=== PATIENT | male | born 1940 | race African-American/Black ===

== ENCOUNTER 2016-02-26 11:13 | Emergency (ER) | payer OTHER ==
[~2016-02-26] VITALS: Ht 188 cm; Wt 45.4 kg
--- NOTE | ~2016-02-26 | EKG ---
[address] [address] ELECTROCARDIOGRAM REPORT Name: BENJAMINJESSY [facility] [id number] Admission: 02/26/16 Attend Phys: Discharge: 02/26/16 Date of : 36 Report #: [id number] THIS REPORT FOR: //name// [facility] ED Test Date: 2016-02-26 Test Time: 11:23:18 Pat Name: JESSY ALEXANDER Department: Room: Gender: Labor Relations Director: ANDREI : 1940 Requested By: Levy Jeter Order Number: [id number] MD: Sebastien Hansen Measurements Intervals [place] Rate: 96 P: 150 AK: 122 QRS: -77 QRSD: 121 T: 127 QT: 356 QTc: 450 Interpretive Statements Sinus or ectopic atrial tachycardia Interpretation limited by artifact. Electronically Signed On 02-26-2016 16:30:43 BUSINESS ANALYTICS MANAGER by Sebastien Hansen [email or web address] <ELECTRONICALLY SIGNED> By: Seabstien Hansen MD 02/26/16 1630 1123 1123 Sebastien Hansen MD /MACIE
[~2016-02-26 11:13] MED LIST: ADVAIR 250-501 EACH IH; ATIVAN0.5 MG PO; BACTROBAN22 GM TP; BROVANA15 MCG/2 M IH; CARAFATE 1 GM TA1 G1 GT; CARDURA XL8 MG PO; DALIRESP500 MCG PO; FLOMAX PO; LOMOTIL TABLET1 EACH PO; OCEAN45 ML NS; PREDNISONE50 MG PO; PREVALITE PACKE1 PKT PO; PROVENTIL HFA6.7 G1 INH; PROVENTIL IH; PULMICORT0.5 MG/2 M IH; STERAPRED5 MG PO; TAMSULOSIN HCL0.4 M1 PO; VENTOLIN HFA 1818 GM
[2016-02-26 11:34] LABS: ABSOLUTE NEUTROPHILS 7.7 thou/uL (1.4-8.2); BASOPHILS 0.7 % (0.0-2.0); EOSINOPHILS 0.2 % (0.0-3.0); HEMATOCRIT 35.8 % (42.0-52.0); HEMOGLOBIN 11.9 gm/dL (14.0-18.0); LYMPHOCYTES 8.4 % (24.0-44.0); MCH 29.8 pg (26.0-34.0); MCHC 33.2 % (28.0-37.0); MCV 89.8 fL (80.0-100.0); MONOCYTES 3.3 % (1.0-8.0); PLATELET COUNT 166 thou/uL (150-400); POLYS 87.4 % (36.0-66.0); RBC 3.99 mil/uL (4.50-6.00); RDW 13.3 % (10.5-14.5); WBC 8.8 thou/uL (4.0-11.0)
[2016-02-26 11:35] LABS: MANUAL DIFF NO
[2016-02-26 11:47] LABS: ANION GAP 4 mmol/L (7-16); BUN 26 mg/dL (7-18); CALCIUM 9.8 mg/dL (8.5-10.1); CHLORIDE 99 mmol/L (98-107); CO2 35 mmol/L (21-32); CREATININE 2.2 mg/dL (0.6-1.3); GLUCOSE 130 mg/dL (70-99); POTASSIUM 4.6 mmol/L (3.5-5.1); SODIUM 138 mmol/L (136-145)
[2016-02-26 11:52] LABS: ABG SAMPLE TYPE ARTERIAL; BE(vivo) 6.1 mmol/L (-2 to +3); HCO3 32.9 mmol/L (22.0-26.0); LACTATE 1.74 mmol/L (0.5-2.0); O2(CT) 16.4 mL/dL (15.0-23.0); O2Hb 95.2 % (92.0-98.0); PCO2 58.2 mmHg (35.0-45.0); PO2 93.8 mmHg (80.0-100.0); sO2 96.8 % (92.0-98.0); tCO2 34.7 mmol/L (24.0-30.0)
[2016-02-26 11:53] LABS: STICK SITE L.RADIAL
[2016-02-26 11:55] LABS: ALBUMIN 3.5 g/dL (3.4-5.0); ALKALINE PHOSPHATASE 60 U/L (46-116); SGOT 14 U/L (15-37); SGPT 19 U/L (30-65); TOTAL BILIRUBIN 0.5 mg/dL (<0.1-1.0); TOTAL PROTEIN 7.4 g/dL (6.4-8.2); TROPONIN-I < 0.04 ng/mL (<0.04-0.07)
[2016-02-26] MEDS ORDERED: BACTRIM DS TAB1 EACH PO (12:22)
[2016-02-26] MEDS ORDERED: VENTOLIN HFA 1818 GM INH (13:42)
[2016-02-26] MEDS ORDERED: PREDNISONE 20 M20 MG PO (13:42)
[2016-02-26 15:42] VITALS: BP 165/72
== END 2016-02-26 15:04 | disposition home or self-care (01) ==
LOC: ER 11:13
PROVIDERS: Physician Assistant
DX: J06.9 Acute upper respiratory infection, unspecified (principal); J44.9 Chronic obstructive pulmonary disease, unspecified; R53.81 Other malaise; N18.9 Chronic kidney disease, unspecified; F17.210 Nicotine dependence, cigarettes, uncomplicated; Z88.8 Allergy status to other drugs, medicaments and biological substances

== ENCOUNTER 2016-07-23 15:33 | Inpatient (IN) | payer OTHER ==
[~2016-07-23] VITALS: Ht 185.4 cm; Wt 59.0 kg
--- NOTE | ~2016-07-23 | HC ---
[facility] [place] [place] [address] CONSULTATION Name: JESSY ALEXANDER Brett Room #: 444-P ADM IN M.R.#: [id number] Admission: 07/24/16 Attend Phys: Abram Pereira Discharge: Date of : 38 Report #: [id number] THIS REPORT FOR: //name// CC: Abram Oquendo DATE OF SERVICE: 07/25/2016 DATE OF SERVICE: 07/25/2016. REASON FOR CONSULTATION: Clearance for colonoscopy. IMPRESSION: 1. History of hypercapnic respiratory failure. 2. Chronic obstructive pulmonary disease, on 4 liters of oxygen at home. 3. Rectal bleeding. 4. Acute renal failure. 5. Thrombocytopenia. 6. Chronic prednisone use. 7. BPH. PLAN: We will check an ABG, followup x-ray. Continue aerosol treatments, continue home prednisone, and depending on ABG, he may be at high risk, but since this is needed, with anesthesia services should be stable for colonoscopy. May require bipap for short time after procedure. HISTORY OF PRESENT ILLNESS: This is a very pleasant 75-year-old male, patient of Dr. Oquendo with history of COPD, usually uses a wheelchair to get to the office, on chronic prednisone with last spirometry showing an FVC of 1.75, FEV1 of 0.43. He denies any recent respiratory infection. Last saw Dr. Oquendo on May 18. MEDICATIONS: Include multivitamin, Flomax, theophylline, prednisone, ProAir, Brovana, budesonide, and albuterol. PAST MEDICAL HISTORY: COPD on 4 liters, BPH, perforated nasal septum, history of DVT with history of IVC filter. FAMILY HISTORY: Breast CA. SOCIAL HISTORY: Positive tobacco, quit 5 years ago. Negative significant ETOH. ALLERGIES: ipratropium caused urinary retention REVIEW OF SYSTEMS: History of nosebleeds, cough wheeze, shortness of breath at times. [facility] [address] [place] [address] CONSULTATION Name: JESSY ALEXANDER Room #: 444-P [facility] IN [facility]#: [id number] Admission: 07/24/16 Attend Phys: Abram Pereira Discharge: Date of : 38 Report #: [id number] PHYSICAL EXAMINATION: VITAL SIGNS: Temperature 97.6, pulse 98, respiratory rate is 20 and BP 143/77. EYES: Negative icterus. NECK: Trachea midline. LUNGS: Decreased breath sounds. No wheeze. HEART: Regular. ABDOMEN: Bowel sounds present. EXTREMITIES: Positive edema. LABORATORY AND DIAGNOSTIC DATA: Chest x-ray in February showed airtrapping, no pneumonia. We will repeat one today. ABG pending. BUN 18, creatinine 1.5, albumin 3.4. INR 1. White count 5.9, hemoglobin 9.3, platelets 118. C. diff. negative. ABG in February showed pH 7.37, pCO2 of 58, pO2 of 94 on 4 liters. May need to check echocardiogram to look for pulmonary hypertension. We will follow closely with you. <ELECTRONICALLY SIGNED> By: Dylon Boyle MD 07/26/16 0931 1428 1931 Dylon Boyle MD /nt
--- NOTE | ~2016-07-23 | S ---
[facility] [place] [address] SURGICAL PATH RPT PROCEDURE Name: NICK GUEVARA Room #: 463-P ADM IN M.R.#: [id number] Admission: 07/24/16 Date of : 36 Discharge: Report #: [id number] Path Case #: [id number] PATHOLOGY REPORT COLLECTION DATE: 07/28/2016 RECEIVED DATE: 07/28/2016 SUBMITTING PHYS: Dr. Baudilio Knutson OTHER PHYS: Dr. Abram Oquendo SPECIMEN(S) RECEIVED: A.Bx of gastritis B.Polyp at rectum * * * * * * * * * * * * FINAL DIAGNOSIS: A. Gastric mucosa, gastritis, endoscopic biopsy: - Mild chronic gastritis with features of reactive gastropathy. - Negative for intestinal metaplasia or atrophy. - Negative for Helicobacter pylori. B. 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 - Multiple fragments with cautery showing tubulovillous adenoma. - Focal stalk/unremarkable mucosa identified without dysplasia. COMMENT: Part A: Helicobacter pylori immunohistochemical stain performed on block A1-negative. Part B: Co-review: Dr. Lake Bal Please correlate with endoscopic findings for a complete removal of this 3.4 cm polyp. (IUV:mgr; d/t: 07/30/16) PATHOLOGIST: Tonia Lucas M.D. REPORT ELECTRONICALLY SIGNED BY: Tonia Lucas M.D. DATE/TIME: 07/30/2016 14:23 * * * * * * * * * * * * GROSS PATHOLOGY: A. Received in formalin labeled "Nick Guevara, biopsy of gastritis," are 5 segments of mathias soft tissue measuring 0.8 x 0.5 x 0.3 cm in aggregate dimensions and ranging from 0.3 to 0.6 cm in maximum dimension. The specimen is submitted entirely in cassette A1. B. Received in formalin labeled "Nick Guevara, polyp at rectum," is [address] [address] SURGICAL PATH RPT PROCEDURE Name: NICK GUEVARA R Room #: 463-P ADM IN M.R.#: [id number] Admission: 07/24/16 Date of : 38 Discharge: Report #: [id number] Path Case #: [id number] a 3.4 x 3.1 x 2.7 cm polypoid piece of mathias soft tissue. The margin is inked and the tissue is sectioned perpendicular to the margin and submitted in its entirety in cassettes A1-A6. Upon sectioning fragmentation occurred. (KAH; 07/29/2016) CLINICAL HISTORY: Pre-op diagnosis: History of H. pylori, rectal bleeding Post-op diagnosis: Gastritis, rectal polyp INITIAL CPT CODE(S): A; 99786, 41534 B; 91526 Professional services performed by [facility] at [address] , [place] [address] Technical services performed by [facility] at [address] [place] [address]., [address], [place] [address]. [facility] [address] [place] [address] PHONE: [phone] DIRECTOR: Ata Underwood M.D. * * * END OF REPORT * * *
--- NOTE | ~2016-07-23 | P ---
[facility] [place] [address] PROCEDURE REPORT Name: JESSY ALEXANDER Brett Room #: 444-P ADM IN M.R.#: [id number] Admission: 07/24/16 Attend Phys: Abram Pereira Discharge: Date of : 38 Report #: [id number] THIS REPORT FOR: //name// CC: Abram Oquendo BRIEF HISTORY: The patient is a 75-year-old male with rectal bleeding. He also has a history of multiple gastric ulcers, severe esophagitis and H. pylori in the past. PREOPERATIVE DIAGNOSES: Gastrointestinal bleed and history of peptic ulcer disease. POSTOPERATIVE DIAGNOSES: 1. Mild Therese esophagitis. 2. Mild gastritis. MEDICATIONS: Deep sedation with propofol per anesthesia. SPECIMEN: Biopsies of gastritis. ESTIMATED BLOOD LOSS: Less than 3 mL. PROCEDURE: Esophagogastroduodenoscopy with biopsy. FINDINGS: Prior to propofol sedation, procedure of upper endoscopy discussed with the patient as well as all potential risks and its complications. He indicates he understands and desires to proceed. DESCRIPTION OF PROCEDURE: With the patient in left lateral decubitus position, Mobuii video endoscope was inserted in the cervical esophagus under direct vision without difficulty. Examination of this organ to its entire length revealed intact mucosa without evidence of ulcers, erosions, or Padron mucosa. The squamocolumnar junction was unremarkable. He had a few Therese plaques in his esophagus, did not suffice on use of steroids. The scope was advanced into the stomach, was examined on end views as well as retroflexed views. There was mild erythema in the antrum. No ulcers or bleeding lesions were seen. No mass lesions were seen. There was no evidence of outlet obstruction, no fluid or solids within the stomach. Upon retroflexion, no mass lesions were seen. Hiatus hernia was not seen. The pylorus, duodenal bulb, and postbulbar duodenal sweep were inspected and noted to be unremarkable. At that point, the scope was slowly withdrawn and careful circumferential views confirmed the above findings. The patient tolerated the procedure well. Biopsies were taken of the gastritis. DISPOSITION: The patient with Therese esophagitis, we will start on nystatin. We will also follow up on biopsies with regard to H. pylori. ____ has had GI [address] [address] PROCEDURE REPORT Name: JESSY ALEXANDER Brett Room #: 444-P [facility] IN ..#: [id number] Admission: 07/24/16 Attend Phys: Abram Pereira Discharge: Date of : 38 Report #: [id number] bleeding. We will change his PPI to H2 margaret since he does not have ulcer disease or esophagitis. We will proceed with colonoscopy at this time. <ELECTRONICALLY SIGNED> By: Baudilio Knutson MD 07/30/16 1128 1330 2234 Baudilio Knutson MD /nt
--- NOTE | ~2016-07-23 | P ---
[facility] [place] [address] PROCEDURE REPORT Name: JESSY ALEXANDER Brett Room #: 444-P ADM IN M.R.#: [id number] Admission: 07/24/16 Attend Phys: Abram Pereira Discharge: Date of : 38 Report #: [id number] THIS REPORT FOR: //name// CC: Abram Oquendo BRIEF HISTORY: The patient is a 75-year-old male with rectal bleeding and no previous colonoscopy. PREOPERATIVE DIAGNOSIS: Rectal bleeding. POSTOPERATIVE DIAGNOSES: 1. A 4 cm pedunculated polyp, proximal rectum. 2. Mild diverticulosis coli. MEDICATIONS: Deep sedation with propofol per anesthesia. SPECIMEN: Large rectal polyp. ESTIMATED BLOOD LOSS: 100 mL. PROCEDURE: Colonoscopy to cecum and terminal ileum with snare polypectomy and hemostasis. FINDINGS: Prior to propofol sedation, procedure of colonoscopy discussed with the patient as well as potential risks and its complications. He indicates he understands and desires to proceed. DESCRIPTION OF PROCEDURE: With the patient in left lateral decubitus position, the digital examination was completed which revealed no abnormalities. Subsequently, the LiveRail video colonoscope was introduced into the rectum, advanced under direct vision to the cecum. Done with minimal difficulty. The cecum was identified by the ileocecal valve and the appendiceal orifice. I was able to visualize the distal segment of terminal ileum, which was inspected and noted to be unremarkable. At that point, the scope was withdrawn and careful circumferential views obtained. Overall, the prep was good. Mucosa within normal limits, normal vascular pattern, normal light reflex. As we withdrew the scope, no bleeding lesions were seen. In the left colon, an occasional diverticulum was seen. However, there was no endoscopic evidence of diverticulitis. However, as we withdrew the scope through the colon, no significant lesions were seen until the rectum was reached and he was found to have a very large at least 4 cm pedunculated polyp that was friable and on a moderate narrowed stalk. We engaged the polyp with a polypectomy snare. We were able to slide it around the stalk. The polyp was removed by hot snare polypectomy. Immediate following removal of the polyp, there was an arterial spurting vessel in the stalk that was spurting blood. We initially applied 2 clips and bleeding slowed, but did not cease. We then injected 1:10,[address] [address] PROCEDURE REPORT Name: JESSY ALEXANDER Room #: 444-P [facility] IN M.R.#: [id number] Admission: 07/24/16 Attend Phys: Abram Pereira Discharge: Date of : 38 Report #: [id number] epinephrine with a scar therapy needle into the stalk. Approximately, 2 mL were injected in the stalk. Upon injection with the epinephrine, the bleeding slowed dramatically and there was just a very slight ooze. We were able to identify the area of the stalk where the ooze was coming from and a third clip was placed and at that point, we obtained good hemostasis. We also were able to retrieve the polyp. However, the polyp was quite large and even with Brooks net, we cannot engage the entire polyp into the net and with initial passes only segments were removed. However, finally with a large polypectomy snare, we were able to guide the snare around the polyp and we were able to remove the polyp intact through the anus. The scope was reinserted. Blood was cleaned up. Clot was removed. We reinspected the polypectomy site on 2 additional occasions and there was good hemostasis. There was no further bleeding. The scope was withdrawn in the very distal rectum. Upon retroflexion, no abnormalities were seen. Scope was withdrawn. The patient tolerated the procedure well. DISPOSITION: The patient was admitted with rectal bleeding. He was found to have a large polyp, which was quite friable and most certainly the source of his bleeding. The polyp was removed and bleeding was encountered as described and controlled with injection of epinephrine and clips. The patient tolerated the procedure well. The polyp was quite large and although it appears benign, it may harbor malignancy. We will follow up on pathology. We will obtain a CBC due to bleeding. We will monitor hemoglobin as well. <ELECTRONICALLY SIGNED> By: Baudilio Knutson MD 07/30/16 1128 1427 0303 Baudilio Knutson MD /nt
--- NOTE | ~2016-07-23 | HC ---
[facility] [place] [address] CONSULTATION Name: JESSY ALEXANDER Room #: 463-P ADM IN M.R.#: [id number] Admission: 07/24/16 Attend Phys: Augustine Hernandez MD Discharge: Date of : 38 Report #: [id number] THIS REPORT FOR: //name// CC: Augustine Oquendo DATE OF SERVICE: 08/03/2016 REFERRING PROVIDER: Augustine Hernandez MD. REASON FOR CONSULTATION: Dysplastic colon polyp. HISTORY OF PRESENT ILLNESS: The patient is a 75-year-old -Citizen Of [place] male with COPD, on chronic steroids and oxygen dependency, who was admitted with rectal bleed, found to have a rectal polyp with high grade dysplasia for which, he is now status post endoscopic polypectomy. The patient did develop a post-polypectomy bleed and underwent interventional radiology coiling to good effect. The patient's hemoglobin has been stable since IR intervention. Pathology has returned positive for high-grade dysplasia and a very large approximate 4 cm polyp, and as such, I was asked to evaluate. Upon further review of the pathology report, it appears the base of the polyp and the stalk were both negative for dysplasia with no mucosa being involved. Currently, the patient denies fevers, chills, nausea, vomiting, diarrhea, or constipation. He feels well currently. PAST MEDICAL HISTORY: Oxygen and steroid dependent COPD, acute kidney injury, anemia and thrombocytopenia secondary to acute blood loss, BPH, debility, protein-calorie malnutrition. He is status post IVC filter and IR coiling. HOME MEDICATIONS: Prednisone, albuterol, Ativan, Flomax, and Advair. ALLERGIES: ATROVENT and SPIRIVA, which both cause urinary retention. FAMILY HISTORY: Reviewed and noncontributory. SOCIAL HISTORY: The patient had a very heavy tobacco use history, having quit greater than 1 year ago, but having a near [id number]-hosc history prior. The patient denies alcohol or illicit drug use. REVIEW OF SYSTEMS: GENERAL: The patient denies nocturnal fevers or chills. HEENT: No change in vision or change in hearing. NECK: No swelling or difficulty swallowing. HEART: No chest pain or palpitations. LUNGS: No coughing or worsening shortness of breath above baseline. ABDOMEN: No nausea, no vomiting. [facility] [address] [place] [address] CONSULTATION Name: JESSY ALEXANDER Brett Room #: 463-P [facility] IN M.R.#: [id number] Admission: 07/24/16 Attend Phys: Augustine Hernandez MD Discharge: Date of : 38 Report #: [id number] GENITOURINARY: No dysuria or hematuria. ENDOCRINE: No polyuria or polydipsia. HEMATOLOGIC: No history of bleeding or easy bruising. EXTREMITIES: No history of weakness or limited range of motion. NEUROLOGIC: No history of syncope or near syncopal episodes. SKIN AND INTEGUMENT: No history of abnormal lesions or moles. PSYCHIATRIC: No history of anxiety or depression. PHYSICAL EXAMINATION: VITAL SIGNS: Temperature 98.3, pulse 86, respirations 16, blood pressure of 130/72. GENERAL: Alert and oriented, in no acute distress. HEENT: Normocephalic and atraumatic. Pupils are equal, round, and reactive to light. NECK: Supple, without lymphadenopathy. Trachea midline. HEART: Regular rate and rhythm. LUNGS: Decreased air entry at the bases bilaterally. ABDOMEN: Soft, nontender, and nondistended. Positive bowel sounds. GENITOURINARY: Normal external male genitalia. EXTREMITIES: No clubbing, cyanosis, or edema. NEUROLOGIC: Cranial nerves 2-12 are grossly intact. PSYCHIATRIC: Normal mood and affect. SKIN AND INTEGUMENT: No abnormal lesions or moles. LABORATORY AND X-RAY DATA: CBC shows white blood cell count of 9,600, hemoglobin of 7.9, platelets 132,000. Creatinine 1.3. Pathology was positive for high-grade dysplasia in an adenomatous polyp with negative stalk and negative mucosa. 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 The patient is doing extremely well at this time. With negative margins from the stalk and the mucosa, no further surgical intervention is warranted, especially in this patient with significant comorbid conditions. He should continue with routine endoscopic surveillance as desired by Gastroenterology. I did have a lengthy discussion with the patient of greater than an hour regarding the findings and the proposed treatment management moving forward, and he agrees to proceed as outlined. I sincerely appreciate this consult. I will follow while hospitalized and leave any further recommendations in the patient's chart as appropriate. <ELECTRONICALLY SIGNED> By: Missy Last MD, FACS 08/06/16 0814 164 31 Missy Last MD, FACS /nt
[~2016-07-23 15:33] MED LIST changes: +BACTRIM DS TAB1 EACH PO; +PREDNISONE 20 M20 MG PO; +VENTOLIN HFA 1818 GM INH
[2016-07-23 15:34] VITALS: BP 147/73
[2016-07-23 16:00] LABS: ABSOLUTE NEUTROPHILS 4.7 thou/uL (1.4-8.2); BASOPHILS 0.4 % (0.0-2.0); EOSINOPHILS 0.9 % (0.0-3.0); HEMATOCRIT 32.4 % (42.0-52.0); HEMOGLOBIN 10.7 gm/dL (14.0-18.0); LYMPHOCYTES 18.9 % (24.0-44.0); MCH 30.6 pg (26.0-34.0); MCHC 33.2 g/dL (28.0-37.0); MCV 92.1 fL (80.0-100.0); MONOCYTES 9.4 % (1.0-8.0); PLATELET COUNT 148 thou/uL (150-400); POLYS 70.4 % (36.0-66.0); RBC 3.51 mil/uL (4.50-6.00); RDW 14.6 % (10.5-14.5); WBC 6.7 thou/uL (4.0-11.0)
[2016-07-23 16:01] LABS: MANUAL DIFF NO
[2016-07-23 16:08] LABS: CREATININE 1.5 mg/dL (0.7-1.3); POTASSIUM 4.4 mmol/L (3.5-5.1)
[2016-07-23 16:13] LABS: ALBUMIN 3.4 g/dL (3.4-5.0); TOTAL BILIRUBIN 0.5 mg/dL (<0.1-1.0); TOTAL PROTEIN 6.6 g/dL (6.4-8.2)
[2016-07-23 16:22] LABS: APTT 27.1 Seconds (24.5-32.8); PROTIME 10.4 Seconds (9.3-11.4)
[2016-07-23 18:40] VITALS: BP 147/83
[2016-07-23 21:30] VITALS: BP 185/80
[2016-07-23 23:31] LABS: HEMATOCRIT 32.2 % (42.0-52.0); HEMOGLOBIN 10.5 gm/dL (14.0-18.0)
[2016-07-24] MEDS ORDERED: BROVANA15 MCG/2 M INH (00:28)
[2016-07-24 04:35] VITALS: BP 114/64; BP 156/73
[2016-07-24 06:01] LABS: HEMOGLOBIN 10.3 gm/dL (14.0-18.0); MCH 30.2 pg (26.0-34.0); MCHC 33.1 g/dL (28.0-37.0); MCV 91.2 fL (80.0-100.0); RBC 3.4 mil/uL (4.50-6.00); RDW 14.4 % (10.5-14.5); WBC 6.8 thou/uL (4.0-11.0)
[2016-07-24 08:00] VITALS: BP 169/92
[2016-07-24 10:27] LABS: HEMATOCRIT 34.1 % (42.0-52.0); HEMOGLOBIN 11.3 gm/dL (14.0-18.0)
[2016-07-24 15:54] VITALS: BP 163/91
[2016-07-24 19:55] VITALS: BP 162/74
[2016-07-25 04:09] LABS: HEMATOCRIT 28.1 % (42.0-52.0); MCH 30.4 pg (26.0-34.0); MCHC 33.1 g/dL (28.0-37.0); MCV 91.7 fL (80.0-100.0); RBC 3.06 mil/uL (4.50-6.00); RDW 14.6 % (10.5-14.5); WBC 5.9 thou/uL (4.0-11.0)
[2016-07-25 04:10] LABS: HEMOGLOBIN 9.3 gm/dL (14.0-18.0)
[2016-07-25 04:20] VITALS: BP 156/90
[2016-07-25 08:00] VITALS: BP 143/77
[2016-07-25 16:00] VITALS: BP 116/56
[2016-07-25 16:18] LABS: ABG SAMPLE TYPE ARTERIAL; LACTATE 1.48 mmol/L (0.5-2.0); O2(CT) 14.4 mL/dL (15.0-23.0); O2Hb 97.1 % (92.0-98.0); PCO2 60.6 mmHg (35.0-45.0); PO2 124.7 mmHg (80.0-100.0); pH 7.341 (7.360-7.450); sO2 98.2 % (92.0-98.0); tCO2 33.9 mmol/L (24.0-30.0)
[2016-07-25 16:19] LABS: STICK SITE L.RADIAL
[2016-07-25 19:40] VITALS: BP 158/74
[2016-07-26 04:43] LABS: MCH 30.6 pg (26.0-34.0); MCHC 33.4 g/dL (28.0-37.0); MCV 91.6 fL (80.0-100.0); RBC 3.28 mil/uL (4.50-6.00); RDW 14.5 % (10.5-14.5); WBC 6.4 thou/uL (4.0-11.0)
[2016-07-26 05:15] VITALS: BP 153/85
[2016-07-26 08:00] VITALS: BP 180/73
[2016-07-26 21:03] VITALS: BP 163/75
[2016-07-27 03:20] VITALS: BP 146/88
[2016-07-27 05:34] LABS: HEMATOCRIT 27.9 % (42.0-52.0); HEMOGLOBIN 9.4 gm/dL (14.0-18.0); MCH 30.4 pg (26.0-34.0); MCHC 33.6 g/dL (28.0-37.0); MCV 90.5 fL (80.0-100.0); RBC 3.08 mil/uL (4.50-6.00); RDW 14.6 % (10.5-14.5); WBC 7.3 thou/uL (4.0-11.0)
[2016-07-27 07:12] LABS: ABG SAMPLE TYPE ARTERIAL; BE(vivo) 4.9 mmol/L (-2 to +3); HCO3 32.4 mmol/L (22.0-26.0); LACTATE 1.07 mmol/L (0.5-2.0); O2(CT) 14.3 mL/dL (15.0-23.0); O2Hb 97.4 % (92.0-98.0); PCO2 64.9 mmHg (35.0-45.0); sO2 97.9 % (92.0-98.0); tCO2 34.4 mmol/L (24.0-30.0)
[2016-07-27 07:13] LABS: STICK SITE R.BRACHIAL; pH 7.316 (7.360-7.450)
[2016-07-27 08:00] VITALS: BP 149/82
[2016-07-27 16:00] VITALS: BP 147/73
[2016-07-27 16:41] VITALS: BP 147/73
[2016-07-27 20:00] VITALS: BP 170/81
[2016-07-28] VITALS (13 sets, daily range): BP systolic 105–171; BP diastolic 44–97
[2016-07-28 06:33] LABS: CALCIUM 8.9 mg/dL (8.5-10.1); CREATININE 1.3 mg/dL (0.7-1.3)
[2016-07-28 15:12] LABS: HEMOGLOBIN 9.5 gm/dL (14.0-18.0); MCH 30.3 pg (26.0-34.0); MCHC 33.9 g/dL (28.0-37.0); MCV 89.6 fL (80.0-100.0); RBC 3.12 mil/uL (4.50-6.00); RDW 14.4 % (10.5-14.5); WBC 6.7 thou/uL (4.0-11.0)
[2016-07-29] VITALS (8 sets, daily range): BP systolic 103–153; BP diastolic 42–64
[2016-07-29 05:39] LABS: HEMATOCRIT 22.5 % (42.0-52.0); HEMOGLOBIN 7.6 gm/dL (14.0-18.0); MCH 30.5 pg (26.0-34.0); MCHC 33.9 g/dL (28.0-37.0); RBC 2.5 mil/uL (4.50-6.00); RDW 14.8 % (10.5-14.5); WBC 10.4 thou/uL (4.0-11.0)
[2016-07-29 05:56] LABS: CALCIUM 8.4 mg/dL (8.5-10.1); CREATININE 1.5 mg/dL (0.7-1.3); POTASSIUM 4.1 mmol/L (3.5-5.1)
[2016-07-30 05:26] VITALS: BP 119/95
[2016-07-30 09:33] VITALS: BP 130/58
[2016-07-30 12:06] LABS: HEMATOCRIT 19.1 % (42.0-52.0); HEMOGLOBIN 6.4 gm/dL (14.0-18.0)
[2016-07-30 13:44] LABS: ABG SAMPLE TYPE ARTERIAL; HCO3 31.3 mmol/L (22.0-26.0); O2(CT) 9.7 mL/dL (15.0-23.0); O2Hb 96.6 % (92.0-98.0); PCO2 58.2 mmHg (35.0-45.0); PO2 144.2 mmHg (80.0-100.0); STICK SITE R.RADIAL; pH 7.348 (7.360-7.450); sO2 98.7 % (92.0-98.0); tCO2 33.1 mmol/L (24.0-30.0)
[2016-07-30 16:15] VITALS: BP 120/49
[2016-07-30 16:25] VITALS: BP 126/61; BP 130/59
[2016-07-30 16:45] VITALS: BP 130/59
[2016-07-30 20:12] VITALS: BP 126/61
[2016-07-31 04:22] VITALS: BP 129/71
[2016-07-31 05:39] LABS: HEMATOCRIT 22.6 % (42.0-52.0); HEMOGLOBIN 7.7 gm/dL (14.0-18.0); MCH 30.2 pg (26.0-34.0); MCHC 33.9 g/dL (28.0-37.0); PLATELET COUNT 90 thou/uL (150-400); RBC 2.54 mil/uL (4.50-6.00); RDW 14.8 % (10.5-14.5); WBC 7.2 thou/uL (4.0-11.0)
[2016-07-31 05:57] LABS: MANUAL DIFF YES
[2016-07-31 07:43] LABS: ABG SAMPLE TYPE ARTERIAL; BE(vivo) 7.2 mmol/L (-2 to +3); HCO3 33.8 mmol/L (22.0-26.0); LACTATE 0.78 mmol/L (0.5-2.0); O2(CT) 10.7 mL/dL (15.0-23.0); O2Hb 94.6 % (92.0-98.0); PCO2 62.2 mmHg (35.0-45.0); PO2 86.1 mmHg (80.0-100.0); pH 7.353 (7.360-7.450); sO2 95.8 % (92.0-98.0); tCO2 35.7 mmol/L (24.0-30.0)
[2016-07-31 07:44] LABS: STICK SITE L.RADIAL
[2016-07-31 08:24] VITALS: BP 150/64
[2016-07-31 10:04] LABS: ABSOLUTE NEUTROPHILS 7.1 thou/uL (1.4-8.2); ANISOCYTOSIS 2+; HYPOCHROMASIA 2+; MACROCYTES 1+; MICROCYTES 1+; NUCLEATED RBCS 1 /100WBC; TOTAL CELL COUNT 100
[2016-07-31 10:05] LABS: POLYCHROMASIA 1+
[2016-07-31 14:47] VITALS: BP 119/61
[2016-07-31 19:11] VITALS: BP 127/70
[2016-08-01 03:20] VITALS: BP 145/74
[2016-08-01 03:44] LABS: HEMATOCRIT 23.4 % (42.0-52.0); HEMOGLOBIN 7.9 gm/dL (14.0-18.0); MCH 30.2 pg (26.0-34.0); MCHC 33.9 g/dL (28.0-37.0); MCV 89.2 fL (80.0-100.0); RBC 2.63 mil/uL (4.50-6.00); RDW 14.5 % (10.5-14.5); WBC 9.4 thou/uL (4.0-11.0)
[2016-08-01 07:35] VITALS: BP 145/58
[2016-08-01 11:49] VITALS: BP 140/84
[2016-08-01 15:48] VITALS: BP 143/65
[2016-08-01 19:55] VITALS: BP 155/78
[2016-08-02 03:49] VITALS: BP 100/32
[2016-08-02 07:33] VITALS: BP 119/60
[2016-08-02 08:33] LABS: HEMATOCRIT 23.7 % (42.0-52.0); HEMOGLOBIN 7.9 gm/dL (14.0-18.0); MCH 30.5 pg (26.0-34.0); MCHC 33.4 g/dL (28.0-37.0); MCV 91.3 fL (80.0-100.0); RBC 2.59 mil/uL (4.50-6.00); RDW 14.6 % (10.5-14.5); WBC 9.6 thou/uL (4.0-11.0)
[2016-08-02 09:03] LABS: CREATININE 1.3 mg/dL (0.7-1.3); POTASSIUM 5.2 mmol/L (3.5-5.1)
[2016-08-02 11:09] VITALS: BP 149/83
[2016-08-02 16:00] VITALS: BP 155/86
[2016-08-02 19:56] VITALS: BP 139/71
[2016-08-03 04:09] VITALS: BP 128/58
[2016-08-03 07:20] VITALS: BP 136/68
[2016-08-03 11:15] VITALS: BP 120/64
[2016-08-03 16:10] VITALS: BP 124/62
[2016-08-03 21:00] VITALS: BP 130/72
[2016-08-04 04:38] VITALS: BP 138/76
[2016-08-04 08:00] VITALS: BP 117/61
[2016-08-04 10:54] LABS: HEMATOCRIT 24.2 % (42.0-52.0); MCH 30.1 pg (26.0-34.0); MCV 91.3 fL (80.0-100.0); RBC 2.65 mil/uL (4.50-6.00); RDW 14.5 % (10.5-14.5); WBC 9.4 thou/uL (4.0-11.0)
[2016-08-04 11:05] LABS: % SATURATION 12 % (20-39); IRON 23 ug/dL (65-175); TIBC 194 ug/dL (250-450); UIBC 171 ug/dL
[2016-08-04 11:13] VITALS: BP 121/68
[2016-08-04 15:18] VITALS: BP 116/62
[2016-08-04 19:54] VITALS: BP 159/71
[2016-08-05 05:08] VITALS: BP 118/71
[2016-08-05 07:41] VITALS: BP 121/67
[2016-08-05 08:00] VITALS: BP 121/67
[2016-08-05 11:47] VITALS: BP 115/93
[2016-08-05 15:43] VITALS: BP 125/75
[2016-08-05 20:16] VITALS: BP 140/74
[2016-08-06 03:00] VITALS: BP 101/60
[2016-08-06 07:04] VITALS: BP 130/67
[2016-08-06] MEDS ORDERED: PULMICORT0.5 MG/21 INH (08:20)
[2016-08-06] MEDS ORDERED: FLOMAX0.4 MG PO (08:20)
[2016-08-06] MEDS ORDERED: ATIVAN0.5 MG PO (08:20)
[2016-08-06] MEDS ORDERED: PREDNISONE 20 M20 MG PO (08:20)
[2016-08-06] MEDS ORDERED: CARDIZEM CD 18180 M3 PO (08:20)
[2016-08-06] MEDS ORDERED: MIRALAX17 GM PO (08:20)
== END 2016-08-06 11:16 | DRG 356 ==
LOC: ER 15:33 → EROBS 17:43 → 4S 22:21 → 4W 07-24 10:27 → 4S 07-24 10:27 → 4W 07-30 13:08
PROVIDERS: Emergency Medicine; Family Medicine; Hospitalist; Internal Medicine Gastroenterology; Internal Medicine Hematology & Oncology; Internal Medicine Pulmonary Disease; Radiology Diagnostic Radiology; Specialist
PROC: 0DBP8ZZ Excision of Rectum, Via Natural or Artificial Opening Endoscopic (ICD-10-PCS; principal; 2016-07-28)
PROC: 04LB3DZ Occlusion of Inferior Mesenteric Artery with Intraluminal Device, Percutaneous Approach (ICD-10-PCS; 2016-07-28)
PROC: 0DB68ZX Excision of Stomach, Via Natural or Artificial Opening Endoscopic, Diagnostic (ICD-10-PCS; 2016-07-28)
PROC: 30233N1 Transfusion of Nonautologous Red Blood Cells into Peripheral Vein, Percutaneous Approach (ICD-10-PCS; 2016-07-30)
PROC: 5A09357 Assistance with Respiratory Ventilation, Less than 24 Consecutive Hours, Continuous Positive Airway Pressure (ICD-10-PCS; 2016-08-05)
DX: K57.91 Diverticulosis of intestine, part unspecified, without perforation or abscess with bleeding (principal); E43 Unspecified severe protein-calorie malnutrition; J96.21 Acute and chronic respiratory failure with hypoxia; J96.22 Acute and chronic respiratory failure with hypercapnia; N17.9 Acute kidney failure, unspecified; D62 Acute posthemorrhagic anemia; B37.81 Candidal esophagitis; J44.1 Chronic obstructive pulmonary disease with (acute) exacerbation; Z68.1 Body mass index [BMI] 19.9 or less, adult; N40.0 Benign prostatic hyperplasia without lower urinary tract symptoms; D69.6 Thrombocytopenia, unspecified; F15.90 Other stimulant use, unspecified, uncomplicated; N18.9 Chronic kidney disease, unspecified; D64.9 Anemia, unspecified; K29.70 Gastritis, unspecified, without bleeding; D12.6 Benign neoplasm of colon, unspecified; D36.9 Benign neoplasm, unspecified site; Z88.8 Allergy status to other drugs, medicaments and biological substances; Z86.718 Personal history of other venous thrombosis and embolism; Z87.891 Personal history of nicotine dependence; Z99.81 Dependence on supplemental oxygen; Z80.3 Family history of malignant neoplasm of breast; Z79.52 Long term (current) use of systemic steroids
CPT/HCPCS: 10045; 10100; 62110; 62900; 70005

== ENCOUNTER 2016-11-30 19:13 | Emergency (ER) | payer OTHER ==
[~2016-11-30] VITALS: Ht 195.6 cm; Wt 57.1 kg
[~2016-11-30 19:13] MED LIST changes: +BROVANA15 MCG/2 M INH; +CARDIZEM CD 18180 M3 PO; +FLOMAX0.4 MG PO; +MIRALAX17 GM PO; +PULMICORT0.5 MG/21 INH
== END 2016-11-30 20:23 | disposition home or self-care (01) ==
LOC: ER 19:13
DX: Z76.0 Encounter for issue of repeat prescription (principal); J44.9 Chronic obstructive pulmonary disease, unspecified; N40.0 Benign prostatic hyperplasia without lower urinary tract symptoms; N18.9 Chronic kidney disease, unspecified; Z86.2 Personal history of diseases of the blood and blood-forming organs and certain disorders involving the immune mechanism; Z86.718 Personal history of other venous thrombosis and embolism; Z88.8 Allergy status to other drugs, medicaments and biological substances; Z87.891 Personal history of nicotine dependence

== ENCOUNTER 2018-04-09 09:16 | Inpatient (IN) | payer OTHER ==
[~2018-04-09] VITALS: Ht 175.3 cm; Wt 58.7 kg
--- NOTE | ~2018-04-09 | HC ---
[facility] [place] [address] CONSULTATION Name: JESSY ALEXANDER Brett Room #: 203-P ADM IN M.R.#: [id number] Admission: 04/09/18 ������������������ Attend Phys: Brijesh Shelton MD Discharge: ������������������ Date of : 38 Report #: [id number] THIS REPORT FOR: //name// CC: Brijesh Shelton FAM unknown PALLIATIVE CARE CONSULTATION REFERRING PHYSICIAN: Brijesh Shelton M.D. Thank you very much for this consultation. HISTORY OF PRESENT ILLNESS: As you know, the patient is a 77-year-old male who presented to [facility] on 04/11/2018 with apparent COPD exacerbation. The patient had presented with dyspnea. He has a significant history of steroid-dependent COPD as well as being dependent on 4 liters of oxygen at home. He has been on hospice previously with [facility] prior to his arrival, had been living with the son who had found him in severely dyspneic state and had brought him to the hospital. The patient himself today does have significant dyspnea. Does not appear to have medications or opioids for air hunger at this current point in time. He does have Ativan, which he states does help him with anxiety. He denies pain. Denies constipation currently. The patient is unfortunately stating that he is feeling too confused to make decisions at this time and that he would like to have family members present prior to making further decisions. [facility] has been in contact with the patient's son, who is willing to have him go back with hospice to his home and also they have talked with the patient's daughter with regards to this as well. The patient previously stated he was a DNR code status, had an [id number] DNR form. Additionally, he had reported to both the social work professor and [facility] nurse, who were present at the same time, that he wishes to be DNR. PAST MEDICAL HISTORY: COPD, BPH, CKD, tobacco abuse, anemia and history of DVT. PAST SURGICAL HISTORY: IVC filter placement. MEDICATIONS: Flomax, Cardizem, Pulmicort, MiraLax, Ativan and prednisone. FAMILY HISTORY: Noncontributory. ALLERGIES: ATROVENT AND SPIRIVA. REVIEW OF SYSTEMS: CONSTITUTIONAL: Denies fever. Denies chills, though he did test positive for influenza. RESPIRATORY: Does report dyspnea. Does report cough. Does report wheezing. CARDIOVASCULAR: Denies chest pain or palpitations. [facility] [address] [place] [address] CONSULTATION Name: JESSY ALEXANDER Room #: 203-P ADM IN [facility]#: [id number] Admission: 04/09/18 ������������������ Attend Phys: Brijesh Shelton MD Discharge: ������������������ Date of : 38 Report #: [id number] ABDOMEN: Denies constipation, diarrhea or nausea. MUSCULOSKELETAL: Denies focal pain. PHYSICAL EXAMINATION: VITAL SIGNS: Temperature 36.7, pulse 90, respirations 20, blood pressure 169/94 and 96% on 6 liters at the time I visited him, nasal cannula. GENERAL: The patient appears to be alert. He is oriented to self and place. He does appear to have some aspects of difficulty with remembering some of the things that I am saying. HEENT: Extraocular muscles appear to be intact. No scleral icterus. CARDIOVASCULAR: Regular rate and rhythm. No murmur. RESPIRATORY: Diffuse wheezing noted at the time of my interview. He does appear to be tachypneic with appearance of some mild accessory muscle use. ABDOMEN: Soft, nontender to palpation x 4. Positive bowel sounds noted, but diminished. LABORATORY DATA: O2 at 66.2, bicarbonate 33.1. Hemoglobin 10.6, white blood cells 7.8 and platelets 144,000. Creatinine 2.7. Lactic acid 3.7. A pH of 7.374, CO2 is 58. ASSESSMENT AND PLAN: 1. Gwpsf-wd-yxvvbmt combined respiratory failure. Again discussed with the patient today; however, he is in a current point likely with delirium, unable to contribute to decision making at this point in time for himself. Hopefully, this is to resolve as it has previously. He was able to make decisions when he was with hospice with [facility]. I did discuss briefly these things, but again he would not decide at this time. Family is still accepting of hospice care potentially. Certainly, he wishes to be DNR status and I have changed this again to DNR at this time. He is likely to benefit most from hospice given his severe COPD, his oxygen requirements and chronic steroid dependence and frequent re-exacerbations. However, certainly, I will attempt to re-discuss at a future date, hopefully tomorrow, if the patient is able to clear some of his delirium. 2. Delirium, as above. 3. Influenza. Agree with primary team's management. I will continue to follow with this patient. Again, we will attempt to discuss in the future whether or not he wishes to pursue hospice in the future. Thank you very much for the consultation. ��������������������������������������������� ���������������������������������������� By: ��������������������������������������������� [id number] Sid Paez, DO /nt
[2018-04-09 09:20] VITALS: BP 116/71
[2018-04-09 10:09] LABS: BE(vivo) 6.8 mmol/L (-2 to +3); HCO3 36.4 mmol/L (22.0-26.0); PO2 66.9 mmHg (80.0-100.0); sO2 89.5 % (92.0-98.0)
[2018-04-09 10:12] LABS: PCO2 81.9 mmHg (35.0-45.0); pH 7.266 (7.360-7.450)
[2018-04-09 10:16] LABS: ABSOLUTE NEUTROPHILS 8.9 thou/uL (1.4-8.2); BASOPHILS 0.6 % (0.0-2.0); HEMOGLOBIN 11.2 gm/dL (14.0-18.0); LYMPHOCYTES 4.2 % (24.0-44.0); MCH 29.2 pg (26.0-34.0); MCHC 32.1 g/dL (28.0-37.0); MCV 91.1 fL (80.0-100.0); MONOCYTES 8.6 % (1.0-8.0); PLATELET COUNT 125 thou/uL (150-400); POLYS 86.6 % (36.0-66.0); RBC 3.85 mil/uL (4.50-6.00); RDW 14.6 % (10.5-14.5); WBC 10.3 thou/uL (4.0-11.0)
[2018-04-09 10:20] LABS: URINE BILIRUBIN NEGATIVE (Negative); URINE BLOOD NEGATIVE (Negative); URINE CLARITY CLEAR; URINE COLOR YELLOW; URINE GLUCOSE-RANDOM* NEGATIVE (Negative); URINE KETONES NEGATIVE (Negative); URINE LEUKOCYTES-REFLEX NEGATIVE (Negative); URINE NITRITE-REFLEX NEGATIVE (Negative); URINE PROTEIN (DIPSTICK) TRACE (Negative); URINE UROBILINOGEN 0.2 E.U./dl (0.2-1.0)
--- NOTE | 2018-04-09 10:57 | NUR ---
VOICEMAIL LEFT WITH DPOA [SON] AT THIS TIME RAY: [phone]
[2018-04-09 11:01] LABS: TROPONIN-I 0.75 ng/mL (<0.06)
[2018-04-09 11:04] LABS: ALBUMIN 3.9 g/dL (3.4-5.0); CREATININE 1.8 mg/dL (0.7-1.3); TOTAL BILIRUBIN 0.8 mg/dL (<0.1-1.0); TOTAL PROTEIN 7.6 g/dL (6.4-8.2)
[2018-04-09 12:31] VITALS: BP 110/71
--- NOTE | 2018-04-09 12:54 | EKG ---
[address] [place] [address] ELECTROCARDIOGRAM REPORT Name: ELBA ALEXANDERIN Brett Room #: 170-12 ADM IN M.R.#: [id number] ������������������ Admission: 04/09/18 ������������������ Attend Phys: Brijehs Shelton MD Discharge: ������������������ Date of : 38 Report #: [id number] ����������������������������������������������������������������� [id number] THIS REPORT FOR: //name// [facility] ED Test Date: 2018-04-09 Test Time: 09:25:35 Pat Name: JESSY ALEXANDER Department: Room: 170 Gender: M Acid Polymerization Operator: rajan : 1940 Requested By: Levy Jeter Order Number: [id number] MD: Brock Renee Measurements Intervals [place] Rate: 99 P: 88 WI: 126 QRS: -61 QRSD: 130 T: 78 QT: 364 QTc: 468 Interpretive Statements Sinus rhythm Right atrial abnormality Right bundle branch block Compared to ECG 02/26/2016 11:23:18 Atrial abnormality now present Right bundle-branch block now present premature ventricular complexes no longer present Electronically Signed On 04-09-2018 12:53:58 RESOLUTION MANAGER by Brock Renee [email or web address] ��������������������������������������������� <ELECTRONICALLY SIGNED> ���������������������������������������� By: Brock Renee MD, [facility] ��������������������������������������������� 04/09/18 1253 0925 Brock Renee MD, [facility] /EPI
[2018-04-09 13:12] VITALS: BP 97/57
[2018-04-09 15:50] VITALS: BP 84/55
[2018-04-09 16:26] LABS: BE(vivo) 7.5 mmol/L (-2 to +3); HCO3 34.5 mmol/L (22.0-26.0); PCO2 61.5 mmHg (35.0-45.0); PO2 83.4 mmHg (80.0-100.0); pH 7.367 (7.360-7.450); sO2 95.6 % (92.0-98.0)
[2018-04-09 19:43] VITALS: BP 119/76
[2018-04-10 00:39] VITALS: BP 91/50
--- NOTE | 2018-04-10 04:54 | NUR ---
ASSUMED PT CARE AT 1900 WITH NO SIGN OF DISTRESS NOTED IN PT. PT IS ALERT. DENIES ANY NEEDS. ASSESSMENT COMPLETED AND CHARTED. SCHEDULED MEDS ADMINISTERED TO PT. PT BECOMES SHORT OF AIR DURING THE NIGHT, BIPAP IS ADJUSTED, AND PT BECOMES STABLE. DENIES ANY FURTHER NEEDS AT THIS TIME.
[2018-04-10 05:38] LABS: HEMATOCRIT 32.8 % (42.0-52.0); HEMOGLOBIN 10.6 gm/dL (14.0-18.0); MCH 29.1 pg (26.0-34.0); MCHC 32.2 g/dL (28.0-37.0); MCV 90.2 fL (80.0-100.0); RBC 3.64 mil/uL (4.50-6.00); RDW 14.8 % (10.5-14.5); WBC 7.8 thou/uL (4.0-11.0)
[2018-04-10 05:54] LABS: CALCIUM 9.6 mg/dL (8.5-10.1); CREATININE 2.7 mg/dL (0.7-1.3)
[2018-04-10 06:03] VITALS: BP 161/93
[2018-04-10 06:12] LABS: POTASSIUM 6.5 mmol/L (3.5-5.1)
[2018-04-10 07:54] VITALS: BP 137/96
[2018-04-10 10:36] LABS: BE(vivo) 6.5 mmol/L (-2 to +3); HCO3 33.1 mmol/L (22.0-26.0); PCO2 58.1 mmHg (35.0-45.0); PO2 66.2 mmHg (80.0-100.0); pH 7.374 (7.360-7.450); sO2 92.2 % (92.0-98.0)
[2018-04-10 11:15] VITALS: BP 159/93
[2018-04-10 15:45] VITALS: BP 169/94
--- NOTE | 2018-04-10 18:13 | NUR ---
PT CARE ASSUMED APPROX 0700. PT ALERT AND ORIENTED X4. DENIES PAIN. C/O SOA INTERMITTENTLY. ATIVAN USED FOR ANXIETY AND PT REPORTS RELEIF AFTER. BIPAP OFF THIS AM AND ABGS WERE WITHIN ACCEPTABLE RANGE TO KEEP OFF. PT 4LNC AT THIS TIME. BP SLIGHTLY ELEVATED BUT CORRELATING WITH HIGH ANXIETY LEVELS. DR DEGROOT. DIET ADVANCED THIS EVENING. PT TOLERATING. FAMILY CALLED THIS MORNING TO DETERMINE WHO WOULD MAKE PT DECISION IN THE EVENT THAT PT COULD NOT SPEAK FOR HIMSELF. PT DESIGNATED HIS EX- GHISLAINE WHO IS AGREEABLE TO MAKE MEDICAL DECISIONS. PT MAKING DECISIONS FOR HIMSELF AT THIS TIME AFTER DR RODRIGUEZ APPROVED. PT WANTS TO BE FULL CODE AND TAKEN OFF HOSPICE. THIS NURSE SPOKE TO PT'S SON JESSY GUILLERMO AND HE WAS INFORMED REGARDING POC. NO DISTRESS NOTED AT THIS TIME.
[2018-04-10 21:02] VITALS: BP 158/82
[2018-04-11 00:48] VITALS: BP 147/84
[2018-04-11 04:01] LABS: ALBUMIN 3.1 g/dL (3.4-5.0); CALCIUM 8.3 mg/dL (8.5-10.1); CREATININE 2.5 mg/dL (0.7-1.3); PHOSPHORUS 5.9 mg/dL (2.5-4.9)
[2018-04-11 04:04] LABS: POTASSIUM 4.1 mmol/L (3.5-5.1)
--- NOTE | 2018-04-11 04:58 | NUR ---
PT RESTING ON AND OFF THRU THE NOC, WITH BIPAP ON, NO C/O PAIN, TRIES TO VOID WITH URINAL IN BED INCON'T TWICE, NO C/O PAIN, WILL CON'T TO MONITOR PER PPOC.
[2018-04-11 05:44] VITALS: BP 136/77
[2018-04-11 07:47] VITALS: BP 123/78
[2018-04-11 10:47] VITALS: BP 141/78
--- NOTE | 2018-04-11 14:19 | NUR ---
met with mary Leone this am. She reports she was told by RN that she could meet with caset this am to notorize and finalize financial DPOA. Discussed AD she reports she is already patients DPOA for medical care. Discussed [facility] only completes medical advance directive and only [facility] advance directive paperwork. Xwife reports patient lives with their son in home. He is rec hospice services [employer]. She reports he son is in/out for work. Patient has oxygen at home and she plans to be more involved at dc. Met with patient and SW from [facility] Rachel Hunter RATING EXAMINER. She reports patient has been on hospice services with them since approx Dec. He was DNR prior to hospice sevices. With SW present discussed code status. Patient reports he does not want to be resuscitated. He reports just let him go. Discussed with Dr Paez with [facility] present who changed code status. Sp again with mary regarding dc plan from hospital with [facility] present to discuss. Patient reports he wants to stay at [facility]. Mary sp with Jude EDWARDS for some time of plans and reports at this time plan for home xwife to assist her son with increase care in the home. valoriet following
[2018-04-11 16:18] VITALS: BP 117/72
--- NOTE | 2018-04-11 17:50 | NUR ---
ASSESSMENT DOCUMENTED. PT ALERT AND ORIENTED. VSS. SOB NOTED WITH ACTIVITY. RT TREATMENT GIVEN ORDERED. POST VOID BLADDER SCAN WAS 520 CC AFTER VOIDING 100CC. DR RODRIGUEZ NOTIFIED. ORDERS GIVEN TO INSERT FONTANEZ. FALL PRECAUTION ENFORCED. WILL CONTINUE TO MONITOR.
[2018-04-11 20:20] VITALS: BP 146/72
[2018-04-12 04:39] LABS: HEMATOCRIT 27.3 % (42.0-52.0); HEMOGLOBIN 9.2 gm/dL (14.0-18.0); MCH 30.3 pg (26.0-34.0); MCHC 33.8 g/dL (28.0-37.0); MCV 89.8 fL (80.0-100.0); RBC 3.04 mil/uL (4.50-6.00); RDW 14.4 % (10.5-14.5); WBC 8.9 thou/uL (4.0-11.0)
[2018-04-12 04:40] VITALS: BP 142/77
[2018-04-12 04:46] LABS: ALBUMIN 2.7 g/dL (3.4-5.0); CALCIUM 8.1 mg/dL (8.5-10.1); PHOSPHORUS 4.8 mg/dL (2.5-4.9); POTASSIUM 3.9 mmol/L (3.5-5.1)
--- NOTE | 2018-04-12 05:43 | NUR ---
ASSUMED PT CARE AT 1900 WITH NO SIGN OF DISTRESS NOTED IN PT. PT IS ALERT AND ORIENTED. PT IS LAYING IN BED, PT IS ON OXYGEN. ASSESSMENT DOCUMENTED, SCHEDULED MEDS ADMINISTERED TO PT. PT IS STABLE THROUGHOUT THE NIGHT. PT DIDNT PUT BIPAP, DENIES ANY NEEDS AT THIS TIME.
[2018-04-12 07:52] VITALS: BP 147/79
[2018-04-12 11:11] VITALS: BP 139/68
[2018-04-12 14:42] VITALS: BP 139/80
--- NOTE | 2018-04-12 17:39 | NUR ---
ASSESSMENT DOCUMENTED. PT ALERT AND ORIENTED. VSS. SOA NOTED WITH ACTIVITY. RT TREATMENT GIVEN SCHEDULED. DROPLET PRECAUTION ENFORCED. EVALUATED BY PT/OT. NO CONCERN AT THIS TIME. WILL CONTINUE TO MONITOR.
[2018-04-12 20:10] VITALS: BP 147/66
[2018-04-13] VITALS (8 sets, daily range): BP systolic 144–164; BP diastolic 66–89
--- NOTE | 2018-04-13 03:03 | NUR ---
ASSUMED PT CARE AT 1900. PT A/OX4, OCCASIONALLY FORGETFUL. VITAL SIGNS STABLE, NO COMPLAINTS OF PAIN/CHEST PAIN. PT ON 4L O2, OCCASIONALLY COMPLAINED OF SOME SOB BUT DID NOT WANT BIPAP. BREATHING TREATMENT SEEMED TO HELP WITH SOA. PT RESTED WELL THROUGH THE NIGHT. CALLS APPROPRIATELY. PROGRESSING TOWARD PALN OF CARE. WILL CONTINUE TO MONITOR.
[2018-04-13 04:04] LABS: ALBUMIN 2.7 g/dL (3.4-5.0); CALCIUM 8.2 mg/dL (8.5-10.1); CREATININE 1.7 mg/dL (0.7-1.3); PHOSPHORUS 3.2 mg/dL (2.5-4.9)
[2018-04-13] MEDS ORDERED: PREDNISONE 20 M20 MG PO (12:40)
--- NOTE | 2018-04-13 13:43 | NUR ---
PT. DISCHARGING TODAY TO HOME WITH [facility]. FAXED DC ORDERS/SUMMARY TO [facility] SPOKE WITH CHRISTIANO OF TRANSPORT TIME AND DC ORDERS FAXED. NOTIFIED PT'S SON OF TRANSPORT TIME. UNIT NOTIFIED OF DC TIME.
--- NOTE | 2018-04-13 16:21 | NUR ---
ASSESSMENT DOCUMETED. PT ALERT AND ORIENTED. VSS. SOA NOTED WITH ACTIVITY. RECEIVED SCHEDULED RT TREATMENT. SEEN BY DR. RODRIGUEZ. ORDERS GIVEN TO DISCHARGE PT TO HOME. DISCHARGE PAPER WORK GIVEN TO PT. HOSPICE NURSE NOTIFIED.
--- NOTE | 2018-04-14 07:49 | HC ---
[facility] [place] [address] CONSULTATION Name: JESSY ALEXANDER Brett Room #: 203-P [facility] IN M.R.#: [id number] Admission: 04/09/18 ������������������ Attend Phys: Brijesh Shelton MD Discharge: 04/13/18 ������������������ Date of : 38 Report #: [id number] THIS REPORT FOR: //name// CC: Brijesh GONSALES unknown REASON FOR CONSULTATION: Acute kidney injury and elevated creatinine. REASON FOR PRESENTATION: Brought by his family member. HISTORY OF PRESENT ILLNESS: The patient is currently confused. He is not able to provide me with any details. Apparently, the patient had been on hospice. He was brought by his son who lives with him because he was getting short of breath and increasingly weak. The patient does carry significant emphysema with severe COPD and was made hospice. He also had history of DVT with inferior vena cava. He had indeterminate liver lesion and was admitted with GI bleeding, requiring intervention by the Interventional Radiology. When the patient presented yesterday, he was found to be in hyperkalemia. I am being consulted to manage his chronic, acute kidney disease with his hyperkalemia. PAST MEDICAL HISTORY: Extensive and includes the followin. COPD. 2. GI bleeding. 3. 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 4. Debility. 5. Chronic kidney disease. 6. Respiratory failure. 7. BPH. 8. Indeterminate liver lesions. REVIEW OF SYSTEMS: Unobtainable given the patient's mental status. FAMILY HISTORY: Unobtainable given the patient's mental status. ALLERGIES: Listed to IPRATROPIUM. SOCIAL HISTORY: Remote history of cigarette smoking. Lives with his son. MEDICATIONS: Obtained from the medical chart. Currently, the patient is maintained on: 1. Flomax. 2. Diltiazem. 3. Prednisone. 4. Albuterol. PHYSICAL EXAMINATION: [facility] [address] [place] [address] CONSULTATION Name: JESSY ALEXANDER Room #: 203-P [facility] IN [facility]#: [id number] Admission: 04/09/18 ������������������ Attend Phys: Brijesh Shelton MD Discharge: 04/13/18 ������������������ Date of : 38 Report #: [id number] GENERAL: Disoriented to place, time, and person. VITAL SIGNS: Temperature 37.6, blood pressure 137/96. HEAD AND NECK: Wasted, emaciated. CHEST: No crackles. very limited air entry with occasional wheezes. CARDIOVASCULAR: No rub. ABDOMEN: Wasted. LOWER EXTREMITIES: Muscle wasting. LABORATORY DATA: Laboratory values reviewed. Potassium 6.5, BUN is 58, creatinine is 2.7. He is tested positive for influenza A. Chest x-ray reviewed, suggestive of emphysema. ASSESSMENT, IMPRESSION AND PLAN: 1. Acute kidney injury. 2. Chronic kidney disease. 3. Hyperkalemia. 4. Terminal chronic obstructive pulmonary disease. 5. Indeterminate liver lesion. 6. 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 7. The first and the most important thing at this point is to try to figure out the patient's code status and hospice issues. He was in acute respiratory failure with CO2 narcosis. Yesterday, he was placed on CPAP. His acute kidney injury seems to be all prerenal. He does not need any diuretics. We will start IV fluid. 8. We will start treatment for his hyperkalemia. This is all pending further plans by the primary team regarding hospice arrangement. ��������������������������������������������� <ELECTRONICALLY SIGNED> ���������������������������������������� By: Valeriano Bahena MD ��������������������������������������������� 04/14/18 0749 0819 1747 Valeriano Bahena MD /nt
== END 2018-04-13 16:21 | disposition hospice, home (50) | DRG 682 ==
LOC: ER 09:16 → EROBS 11:34 → 2N 11:34
PROVIDERS: Hospitalist; Pediatrics; Physician Assistant; ADMIT Hospitalist
PROC: 5A09357 Assistance with Respiratory Ventilation, Less than 24 Consecutive Hours, Continuous Positive Airway Pressure (ICD-10-PCS; principal; 2018-04-09)
PROC: 5A09357 Assistance with Respiratory Ventilation, Less than 24 Consecutive Hours, Continuous Positive Airway Pressure (ICD-10-PCS; 2018-04-11)
DX: N17.9 Acute kidney failure, unspecified (principal); I21.4 Non-ST elevation (NSTEMI) myocardial infarction; J96.21 Acute and chronic respiratory failure with hypoxia; J96.22 Acute and chronic respiratory failure with hypercapnia; J44.1 Chronic obstructive pulmonary disease with (acute) exacerbation; E46 Unspecified protein-calorie malnutrition; J10.89 Influenza due to other identified influenza virus with other manifestations; E87.5 Hyperkalemia; D64.9 Anemia, unspecified; Z66 Do not resuscitate; N32.0 Bladder-neck obstruction; D69.6 Thrombocytopenia, unspecified; R13.19 Other dysphagia; I27.20 Pulmonary hypertension, unspecified; F41.9 Anxiety disorder, unspecified; R41.0 Disorientation, unspecified; N40.0 Benign prostatic hyperplasia without lower urinary tract symptoms; D12.6 Benign neoplasm of colon, unspecified; N18.9 Chronic kidney disease, unspecified; Z88.8 Allergy status to other drugs, medicaments and biological substances; Z86.718 Personal history of other venous thrombosis and embolism; Z79.52 Long term (current) use of systemic steroids; Z87.891 Personal history of nicotine dependence; Z86.711 Personal history of pulmonary embolism
CPT/HCPCS: 10081

== ENCOUNTER 2018-04-14 18:47 | Inpatient (IN) | payer OTHER ==
[~2018-04-14] VITALS: Ht 195.6 cm; Wt 57.8 kg
[2018-04-14 19:03] LABS: ABSOLUTE NEUTROPHILS 11.3 thou/uL (1.4-8.2); BASOPHILS 0.3 % (0.0-2.0); EOSINOPHILS 0.1 % (0.0-3.0); HEMATOCRIT 34.8 % (42.0-52.0); LYMPHOCYTES 7.9 % (24.0-44.0); MCH 29.6 pg (26.0-34.0); MCHC 32.3 g/dL (28.0-37.0); MCV 91.7 fL (80.0-100.0); MONOCYTES 7.2 % (1.0-8.0); PLATELET COUNT 128 thou/uL (150-400); POLYS 84.5 % (36.0-66.0); RBC 3.79 mil/uL (4.50-6.00); RDW 14.4 % (10.5-14.5); WBC 13.4 thou/uL (4.0-11.0)
[2018-04-14 19:08] LABS: HEMOGLOBIN 11.2 gm/dL (14.0-18.0)
[2018-04-14 19:14] LABS: BE(vivo) 5.7 mmol/L (-2 to +3); HCO3 33.9 mmol/L (22.0-26.0); PCO2 69.2 mmHg (35.0-45.0); PO2 111.7 mmHg (80.0-100.0); pH 7.308 (7.360-7.450); sO2 97.5 % (92.0-98.0)
[2018-04-14 19:16] LABS: ANION GAP 5 mmol/L (7-16); BUN 40 mg/dL (7-18); CALCIUM 8.9 mg/dL (8.5-10.1); CHLORIDE 105 mmol/L (98-107); CO2 35 mmol/L (21-32); CREATININE 1.5 mg/dL (0.7-1.3); GLUCOSE 182 mg/dL (74-106); POTASSIUM 4.3 mmol/L (3.5-5.1); SODIUM 145 mmol/L (136-145)
[2018-04-14 19:26] LABS: TROPONIN-I <0.06 ng/mL (<0.06)
[2018-04-14 20:16] VITALS: BP 180/83
[2018-04-14 20:52] LABS: BE(vivo) 9.2 mmol/L (-2 to +3); HCO3 36.7 mmol/L (22.0-26.0); PO2 78.7 mmHg (80.0-100.0); sO2 94.8 % (92.0-98.0)
[2018-04-14 20:53] LABS: PCO2 66.5 mmHg (35.0-45.0)
[2018-04-14 21:12] VITALS: BP 163/83
[2018-04-14 21:30] VITALS: BP 170/88
[2018-04-15 05:39] VITALS: BP 123/75
[2018-04-15 05:52] LABS: HEMOGLOBIN 10.3 gm/dL (14.0-18.0); MCH 29.2 pg (26.0-34.0); MCHC 32.2 g/dL (28.0-37.0); MCV 90.7 fL (80.0-100.0); RBC 3.52 mil/uL (4.50-6.00); RDW 14.4 % (10.5-14.5)
[2018-04-15 06:08] LABS: CREATININE 1.5 mg/dL (0.7-1.3); POTASSIUM 4.6 mmol/L (3.5-5.1)
--- NOTE | 2018-04-15 07:53 | NUR ---
PATIENT IS ALERT AND ORIENTED. PATIENT IS BED REST. PATIENT IS ON BIPAP, TOLLERATING WELL. PATIENT HAS A FONTANEZ. PATIENT IS ST ON TELE. PATIENT WAS HOME WITH HOSPICE. BUT WAS RE-ADMITTED YESTERDAY. PATIENT WAS (+) ON SEPSIS SCREEN IN ER PROVDER AWARE. PATIENTS LUNGS IMPROVED THROUGHTOUT THE NIGHT. PAITNET IS RESTING COMFORTABLEY IN BED. WCM.
[2018-04-15 08:05] VITALS: BP 141/82
--- NOTE | 2018-04-15 09:00 | NUR ---
Pt seen for underweight BMI of 15. Pt stated current wt of 127 is UBW, 130 lbs in July [address] Pt stated decreased appetite. Currently NPO, but encouraged intake when diet advances. Explained menu ordering. Muscle wasting noted. Although pt observed protein calorie malnutrition, considered low nutrition risk due to end stage disease.
--- NOTE | 2018-04-15 11:30 | EKG ---
[address] [employer] [place] [address] ELECTROCARDIOGRAM REPORT Name: BENJAMINJESSY Room #: 359-P ADM IN M.R.#: [id number] ������������������ Admission: 04/14/18 ������������������ Attend Phys: Brijesh Shelton MD Discharge: ������������������ Date of : 38 Report #: [id number] ����������������������������������������������������������������� [id number] THIS REPORT FOR: //name// [facility] ED Test Date: 2018-04-14 Test Time: 18:55:17 Pat Name: JESSY ALEXANDER Department: Room: 359 Gender: M General Ophthalmologist: WG : 1940 Requested By: Audi Leon Order Number: [id number] MD: Kwaku Donaldson Measurements Intervals [place] Rate: 103 P: 82 NM: 124 QRS: 43 QRSD: 133 T: 76 QT: 355 QTc: 465 Interpretive Statements Sinus tachycardia Ventricular premature complex Right bundle branch block Nonspecific ST-T wave changes Compared to ECG 04/09/2018 09:25:35 Ventricular premature complex(es) now present Atrial abnormality no longer present Electronically Signed On 04-15-2018 11:30:29 CYCLE REPAIRER by Kwaku Donaldson [email or web address] ��������������������������������������������� <ELECTRONICALLY SIGNED> ���������������������������������������� By: Kwaku Donaldson MD ��������������������������������������������� 04/15/18 1130 1855 1855 Kwaku Donaldson MD /EPI
[2018-04-15 11:58] VITALS: BP 151/92
--- NOTE | 2018-04-15 15:25 | NUR ---
ASSESSMENT: CM REVIEWED CHART AND MET WITH PATIENT AT THE BEDSIDE. PT JUST RECENTLY LEFT [facility] AND DISCHARGED HOME WHERE HE LIVES WITH HIS SON WITH [facility]. PT WAS ADMITTED WITH HCAP/SEPSIS/RESPIRATORY DISTRESS. CM SPOKE WITH PATIENT AND HER REPORTS THAT HE USES OXYGEN AT HOME AND IS NORMALLY ON 4L OXYGEN. PT REPORTS HAVING A WHEELCHAIR AND A HOSPITAL BED AT HOME. CM SPOKE WITH PATIENTS SON JESSY WHO HE LIVES WITH AND DISCUSSED. CM NOTIFIED [facility] AT [facility] THAT PATIENT IS HERE AND NO PLANS FOR WEEKEND DISCHARGE. CM WILL CONTINUE TO FOLLOW.
[2018-04-15 16:21] VITALS: BP 163/86
--- NOTE | 2018-04-15 19:23 | NUR ---
Assumed care of patient at 0700. Vitals have been stable. Patient is alert and oriented x3-4. Denies pain. Able to titrate off Bipap late morning; is now on baseline of 4-4.5 L NC. Continuous pulse ox in place. Maintaining oxygen saturations, but is easily SOB with exertion. Requested PRN Ativan; restarted per Dr. Shelton and with good effect. Speech eval today; placed on pureed, nectar thick diet. Poor appetite. Gutierrez to DD with adequate output. Pulmonary and ID consults today. Continue IV antibiotics as scheduled. Repositioning every coupel hours, or as patient allows. Fall precautions in place. Slowly progressing towards POC. Will continue to monitor.
[2018-04-15 19:46] VITALS: BP 140/94
[2018-04-15 19:55] VITALS: BP 172/75
[2018-04-16 00:09] VITALS: BP 126/84
--- NOTE | 2018-04-16 03:20 | NUR ---
ASSUMED PT CARE AROUND 1900. A&OX4, FORGETFUL. DENIES ANY PAIN. PT ANXIOUS AT TIMES, ESPECIALLY WHEN SOA. O2 SATS STABLE ON 2L NC, BUT PT C/O FEELING SOA. RT PLACED PT ON BIPAP WTIH 40% FIO2. PT TOLERATING WELL. PT SLEPT WITH BIPAP DURING THE NIGHT. RESP EVEN AND UNLABORED. REPOSITIONED TO PREVENT SKIN BREAKDOWN. FONTANEZ TO DD. VSS. FALL PRECAUTIONS IN PLACE. PROGRESSING VERY SLOWLY TOWARD POC GOALS.
[2018-04-16 04:34] VITALS: BP 148/99
[2018-04-16 06:18] LABS: ABSOLUTE NEUTROPHILS 8.5 thou/uL (1.4-8.2); BASOPHILS 0.1 % (0.0-2.0); HEMATOCRIT 33.4 % (42.0-52.0); HEMOGLOBIN 10.7 gm/dL (14.0-18.0); MCHC 31.9 g/dL (28.0-37.0); MCV 90.9 fL (80.0-100.0); POLYS 91.9 % (36.0-66.0); RBC 3.67 mil/uL (4.50-6.00); RDW 14.4 % (10.5-14.5); WBC 9.3 thou/uL (4.0-11.0)
[2018-04-16 06:30] LABS: CALCIUM 9.1 mg/dL (8.5-10.1); CREATININE 1.7 mg/dL (0.7-1.3); POTASSIUM 4.3 mmol/L (3.5-5.1)
[2018-04-16 08:05] VITALS: BP 178/103
[2018-04-16 08:25] LABS: PLATELET COUNT 123 thou/uL (150-400)
[2018-04-16 12:11] VITALS: BP 171/81
[2018-04-16 15:14] VITALS: BP 138/90
--- NOTE | 2018-04-16 18:39 | NUR ---
Assumed care of patient at 0700. Vitals have been stable. Patient taken off bipap this morning and placed on 4.5 L NC, which patient states is his baseline. Maintaining oxygen saturations. Patient continues to get SOB with minimal activity; gets anxious when SOB. PRN Ativan given with good effect. Repositioning as patient allows to maintain skin integrity. Sitting up for meals to maintain safe swallowing. Patient seems to be eating more today and have better appetite compared to yesterday. Matt mendez DD. Son called and updated. Slowly progressing towards POC. Will continue to monitor.
[2018-04-16 19:47] VITALS: BP 153/70
[2018-04-16 21:47] LABS: ABSOLUTE NEUTROPHILS 9.5 thou/uL (1.4-8.2); BASOPHILS 0.1 % (0.0-2.0); HEMATOCRIT 31.3 % (42.0-52.0); HEMOGLOBIN 10.2 gm/dL (14.0-18.0); LYMPHOCYTES 2.5 % (24.0-44.0); MCH 29.8 pg (26.0-34.0); MCHC 32.7 g/dL (28.0-37.0); MCV 91.1 fL (80.0-100.0); MONOCYTES 4.1 % (1.0-8.0); PLATELET COUNT 115 thou/uL (150-400); POLYS 93.3 % (36.0-66.0); RBC 3.43 mil/uL (4.50-6.00); RDW 14.5 % (10.5-14.5); WBC 10.1 thou/uL (4.0-11.0)
[2018-04-16 22:08] LABS: LARGE PLATELETS RARE
--- NOTE | 2018-04-17 03:25 | NUR ---
ASSUMED PT CARE AROUND 0. A&OX4, FORGETFUL. C/O ANXIETY. PRN ANXIETY MEDICATION GIVEN. PT WORE 4.5L NC AT BEGINNING OF SHIFT. SLEPT WITH BIPAP ON. TOLERATED WELL. STILL GETS SOA WITH EXERTION OR MOVEMENT. REPOSITIONED FREQUENTLY TO PREVENT SKIN BREAKDOWN. FONTANEZ TO DD WITH GOOD URINE OUTPUT. PROGRESSING SLOWLY TOWARD POC GOALS. WILL CONTINUE TO MONITOR FURTHER.
[2018-04-17 03:39] VITALS: BP 137/87
[2018-04-17 06:37] LABS: HEMATOCRIT 31.1 % (42.0-52.0); HEMOGLOBIN 9.9 gm/dL (14.0-18.0); MCH 29.1 pg (26.0-34.0); MCHC 31.8 g/dL (28.0-37.0); MCV 91.7 fL (80.0-100.0); RBC 3.39 mil/uL (4.50-6.00); RDW 14.7 % (10.5-14.5); WBC 9.1 thou/uL (4.0-11.0)
[2018-04-17 06:54] LABS: ALBUMIN 2.6 g/dL (3.4-5.0); CALCIUM 8.6 mg/dL (8.5-10.1); CREATININE 1.6 mg/dL (0.7-1.3); MAGNESIUM 1.9 mg/dL (1.8-2.4); POTASSIUM 4.3 mmol/L (3.5-5.1); TOTAL BILIRUBIN 0.7 mg/dL (<0.1-1.0); TOTAL PROTEIN 5.7 g/dL (6.4-8.2)
[2018-04-17 07:07] VITALS: BP 142/82
[2018-04-17 11:34] VITALS: BP 192/85
--- NOTE | 2018-04-17 13:24 | NUR ---
Assumed care of patient at 0700. Vitals have been stable. Able to tolerate off bipap since this morning. Maintaining oxygen saturations on 4L NC. Still SOB with minimal exertion. Patient reports that breathing feels like is improving, compared to admission. Alert and oriented x4, forgetful at times. Anxious at times; PRN Ativan given with good effect. Sitting up for meals and patient continues to have better PO intake. Gutierrez to DD with adequate urine output. IVF as ordered. Repositioning every couple hours, as patient allows, to maintain skin integrity. Updated son, Nick, over the phone. Slowly progressing towards POC. Will continue to monitor.
[2018-04-17 15:39] VITALS: BP 152/85
[2018-04-17 19:39] VITALS: BP 140/79
[2018-04-18 04:41] VITALS: BP 134/77
[2018-04-18 05:37] LABS: HEMATOCRIT 31.7 % (42.0-52.0); HEMOGLOBIN 10.3 gm/dL (14.0-18.0); MCH 29.6 pg (26.0-34.0); MCHC 32.5 g/dL (28.0-37.0); MCV 91.3 fL (80.0-100.0); RBC 3.47 mil/uL (4.50-6.00); RDW 14.5 % (10.5-14.5); WBC 11.5 thou/uL (4.0-11.0)
--- NOTE | 2018-04-18 07:45 | NUR ---
SLEPT MOST OF SHIFT. TURNED EVERY 2-3 HOURS FOR COMFORT AND SKIN CARE. MAINTAIN SAFE ENVIRONMENT. WORKING ON GOALS AND PLAN OF CARE FOR NOC. NOTED SHORTNESS OF AIR WITH ACTIVITY. DENIES COMPLAINTS OF PAIN. PROGRESSING SLOWLY ON GOALS FOR DISCHARGE TO HOSPICE. CONTINUE TO ASSES.
[2018-04-18 08:00] VITALS: BP 159/93
[2018-04-18 09:09] LABS: CALCIUM 8.7 mg/dL (8.5-10.1); CREATININE 1.4 mg/dL (0.7-1.3); POTASSIUM 4.8 mmol/L (3.5-5.1)
--- NOTE | 2018-04-18 10:07 | HC ---
[facility] [place] [address] CONSULTATION Name: JESSY ALEXANDER Room #: 363-P ADM IN M.R.#: [id number] Admission: 04/14/18 ������������������ Attend Phys: Brijesh Shelton MD Discharge: ������������������ Date of : 38 Report #: [id number] THIS REPORT FOR: //name// CC: Brijesh GONSALES physician/PCP DATE OF SERVICE: 04/15/2018 TYPE OF REPORT: Infectious disease consultation. ATTENDING PHYSICIAN: Brijesh Shelton M.D. REASON FOR CONSULTATION: Left basilar pneumonia, antibiotic management. HISTORY OF PRESENT ILLNESS: The patient is a 77-year-old -[place] man recently discharged from [facility] after a bout of influenza A, is readmitted with acute exacerbation of shortness of breath, increasing cough and in general doing rather poorly. His chest x-ray revealed new left basilar pulmonary infiltrate. PAST MEDICAL HISTORY 1. Chronic obstructive pulmonary disease, emphysematous in type, new-onset left basilar pneumonia and a recent episode of influenza A. 2. Benign prostatic hypertrophy. 3. Previous urinary obstruction. 4. Chronic kidney disease. 5. History of long-term cigarette smoking. 6. Anemia of chronic disease. 7. Thrombocytopenia. 8. DVT, inferior vena cava filter. 9. Steroid-dependent COPD. 10. Hyperglycemia, question diabetes mellitus type 2. 11. Leukocytosis, mild anemia and thrombocytopenia, the latter chronic. SOCIAL HISTORY: Lives at home with his son. History of cigarette smoking. REVIEW OF SYSTEMS: Increasing shortness of breath. No fevers. Some cough. No sputum production, unable to bring it up. DRUG ALLERGIES: ATROVENT and TIOTROPIUM. MEDICATIONS: The patient on Levaquin 750 mg IV every 48 hours, vancomycin 1 g IV every 12 hours and Zosyn 3.37____ grams IV every 8 hours. The patient also on treatment with p.r.n. lorazepam, intravenous normal saline, diltiazem orally, tamsulosin, guaifenesin, normal saline 100 mL an hour, [address] [address] CONSULTATION Name: BENJAMINJESSY Room #: 363-P [facility] IN ..#: [id number] Admission: 04/14/18 ������������������ Attend Phys: Brijesh Shelton MD Discharge: ������������������ Date of : 38 Report #: [id number] Solu-Medrol 40 mg IV every 8 hours, polyethylene glycol 17 g p.o. daily p.r.n., acetaminophen p.r.n. and ondansetron. PHYSICAL EXAMINATION: GENERAL: Chronically-ill debilitated looking man, dyspneic at rest, receiving supplemental oxygen percent. VITAL SIGNS: Temperature 99.4, pulse 103, respirations 18 and BP 141/82. Height 6 feet 5 inches and weight 127 pounds. O2 saturation 96% on 4.5 liters oxygen nasal cannula. HEENMT: Missing teeth, carious teeth, periodontal disease. Pupils reactive to light. NECK: Supple. LUNGS: Decreased breath sounds throughout with crackles, left base and rhonchi here and there. HEART: S1 and S2. No gallop or murmur. ABDOMEN: Soft. No masses or megaly. GENITALIA: Deferred. RECTAL: Deferred. EXTREMITIES: No clubbing or cyanosis. NEUROLOGICAL: Grossly within normal limits. LABORATORY DATA: Revealed the following abnormals: CO2 of 38, BUN 36, creatinine 1.5 and glucose 182. NT-pro-BNP 2728. WBC 13.4; hemoglobin 11.2 and platelets 128,000. White blood cell count differential 84% segmented neutrophils. ABGs revealed pH 7.36, pCO2 of 66, pO2 of 78 and bicarbonate 36. Lactate normal. This set of gases on FiO2 of 40%. MICROBIOLOGY DATA: Blood cultures were obtained, they are negative so far. RADIOLOGY EVALUATION: Chest x-ray revealed emphysematous changes with development of new left lower lobe pulmonary infiltrate. ASSESSMENT: 1. Severe chronic obstructive pulmonary disease, steroid and oxygen supplementation dependent. 2. Development of left lower lobe pneumonia - healthcare-associated pneumonia. 3. Recent influenza A. 4. Chronic kidney disease. 5. Possible diabetes mellitus. 6. Anemia and thrombocytopenia. 7. Leukocytosis, improving. SUGGESTIONS: Recommend continue broad-spectrum antibiotic coverage with Levaquin, Zosyn and vancomycin. Try to streamline antibiotic regimen once microbiology results available. Obtain ESR and CRP. Continue steroids. [address] [address] CONSULTATION Name: JESSY ALEXANDER Brett Room #: 363-P [facility] IN M.R.#: [id number] Admission: 04/14/18 ������������������ Attend Phys: Brijesh Shelton MD Discharge: ������������������ Date of : 38 Report #: [id number] Shelton, thank you for requesting my suggestions. ��������������������������������������������� <ELECTRONICALLY SIGNED> ���������������������������������������� By: Jacob Hansen MD ��������������������������������������������� 04/18/18 1007 1158 0024 Jacob Hansen MD /nt
[2018-04-18 10:56] VITALS: BP 187/103
--- NOTE | 2018-04-18 14:25 | NUR ---
ON-GOING ASSESSMENT: CM REVIEWED CHART AND SPOKE WITH PATIENTS SON. PT IS SLOWLY PROGRESSING TOWARDS DISCHARGE GOALS BUT STILL ON IV ANBX AND STEROIDS. CM SPOKE WITH PATIENTS SON AND HE DISCUSSED [facility] DISCUSSED POSSIBLY DOING A RESPITE STAY FOR ABOUT 5 DAYS AT A FACILITY BEFORE GOING BACK HOME. CM REACHED OUT TO [facility] AND SPOKE WITH RICK [phone] WHO STATES THEY HAVE A CONTRACT WITH [facility] AND HE WOULD TRY AND CONTACT THEM. CM SPOKE WITH PATIENTS SON AND PATIENT WHO WERE AGREEABLE WITH REFERRAL BEING SENT TO [facility]. CM FAXED REFERRAL AND LEFT FOR ADMISSIONS. CM ALSO DISCUSSED A REFERRAL COULD BE MADE TO [employer] TO SEE IF PATIENT QUALIFIES FOR MEDICAID. SON REPORTING HE DOES NOT FEEL THATS NECESSARY AT THIS TIME AND HE WILL NEVER KEEP HIS FATHER IN A FACILITY FOR LTC. 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 CM WILL CONTINUE TO FOLLOW TO ASSIST NEEDED.
[2018-04-18 15:24] VITALS: BP 144/85
--- NOTE | 2018-04-18 15:26 | NUR ---
PT KEEPS FEELING O2 IS NOT WORKING BUT HIS SATS ARE 99% 4L...RT TX SCHEDULED AND PRN..SELF SUCTIONS WITH LYDIA...
[2018-04-18 20:00] VITALS: BP 147/85
[2018-04-19 03:05] VITALS: BP 157/86
[2018-04-19 07:45] VITALS: BP 154/81
--- NOTE | 2018-04-19 07:49 | NUR ---
SLEPT MOST OF SHIFT PAST HS ATIVAN. WORKING ON GOALS AND PLAN OF CARE FOR NOC. TURNED FOR COMFORT AND SKIN CARE EVERY 2-3 HOURS. PROGRESSING TOWARDS DISCHARG GOALS TO HOSPICE. DENIES COMPLAINTS OF PAIN. REMAINS WITH SHORTNESS OF AIR WITH ACITVITY. CONTINUE TO ASSES.
[2018-04-19 12:02] VITALS: BP 141/84
[2018-04-19] MEDS ORDERED: MUCINEX600 MG PO (12:13)
[2018-04-19] MEDS ORDERED: ATIVAN0.5 MG PO (12:13)
[2018-04-19] MEDS ORDERED: AUGMENTIN 875-1 EACH PO (12:13)
[2018-04-19] MEDS ORDERED: ACETAMINOPHEN325 M1 PO (12:13)
[2018-04-19] MEDS ORDERED: PANTOPRAZOLE SO40 M1 PO (12:13)
[2018-04-19] MEDS ORDERED: PREDNISONE 10 M10 MG PO (12:13)
[2018-04-19 14:32] VITALS: BP 149/70
--- NOTE | 2018-04-19 15:18 | NUR ---
PT WITH PRODUCTIVE COUGH..SUCTIONS SELF WITH YANKEUR..O2 4L...
--- NOTE | 2018-04-19 15:58 | NUR ---
ON-GOING ASSESSMENT: JOSE ANGEL SPOKE WITH LIAFEDERICO ALVARADO WHO STATES THEY CAN ACCEPT PATIENT OVER AT [facility]. CM SPOKE WITH ADMISSIONS AT [facility] WHO STATES THEY CAN ACCEPT PATIENT TODAY FOR RESPITE STAY. JOSE ANGEL SPOKE WITH CHRISTIANO AT REPORTS THEY JUST NEED DISCHARGE ORDERS FAXED TO THEM [facility] FOR BIPAP AND SETTINGS. CM FAXED THIS INFORMATION AND CONFIRMED THEY RECEIVED IT. CM ALSO FAXED DISCHARGE PAPERWORK TO [facility] AND CONFIRMED THEY RECEIVED IT. BEDSIDE RN HAS THE NUMBER FOR REPORT. JOSE ANGEL SPOKE WITH K[employer] DESIGNER WHO IS ARRANGING AMBULANCE FOR PATIENT TO [facility]. JOSE ANGEL SPOKE WITH SON JESSY WHO PATIENT LIVES WITH TO NOTIFY HIM AND HE IS AGREEABLE WITH PLAN. CHART COPY WAS ORDERED.
--- NOTE | 2018-04-19 16:18 | NUR ---
dp sent ambulance form to [facility], [facility] will pick patient up between 4:15 and 5:15 pm today. DP called unit and told costumer assistant to inform the nurse. DP also faxed 2 copies of ambulance form to unit for cover of chart copy and for patient's chart.
== END 2018-04-19 17:14 | DRG 177 ==
LOC: ER 18:47 → EROBS 20:03 → 3W 20:03
PROVIDERS: Emergency Medicine; Internal Medicine; Internal Medicine Pulmonary Disease; Nurse Practitioner Family; ADMIT Hospitalist
PROC: 5A09357 Assistance with Respiratory Ventilation, Less than 24 Consecutive Hours, Continuous Positive Airway Pressure (ICD-10-PCS; principal; 2018-04-14)
PROC: 5A09357 Assistance with Respiratory Ventilation, Less than 24 Consecutive Hours, Continuous Positive Airway Pressure (ICD-10-PCS; 2018-04-15)
PROC: 5A09357 Assistance with Respiratory Ventilation, Less than 24 Consecutive Hours, Continuous Positive Airway Pressure (ICD-10-PCS; 2018-04-16)
PROC: 5A09357 Assistance with Respiratory Ventilation, Less than 24 Consecutive Hours, Continuous Positive Airway Pressure (ICD-10-PCS; 2018-04-17)
PROC: 5A09357 Assistance with Respiratory Ventilation, Less than 24 Consecutive Hours, Continuous Positive Airway Pressure (ICD-10-PCS; 2018-04-18)
DX: J69.0 Pneumonitis due to inhalation of food and vomit (principal); J96.21 Acute and chronic respiratory failure with hypoxia; G92 Toxic encephalopathy; J96.22 Acute and chronic respiratory failure with hypercapnia; J44.1 Chronic obstructive pulmonary disease with (acute) exacerbation; E87.0 Hyperosmolality and hypernatremia; N17.9 Acute kidney failure, unspecified; E46 Unspecified protein-calorie malnutrition; Z68.1 Body mass index [BMI] 19.9 or less, adult; N40.0 Benign prostatic hyperplasia without lower urinary tract symptoms; N18.9 Chronic kidney disease, unspecified; D69.6 Thrombocytopenia, unspecified; I12.9 Hypertensive chronic kidney disease with stage 1 through stage 4 chronic kidney disease, or unspecified chronic kidney disease; I27.20 Pulmonary hypertension, unspecified; Z66 Do not resuscitate; D63.8 Anemia in other chronic diseases classified elsewhere; Z86.711 Personal history of pulmonary embolism; Z79.899 Other long term (current) drug therapy; Z86.718 Personal history of other venous thrombosis and embolism; Z95.828 Presence of other vascular implants and grafts; Z88.8 Allergy status to other drugs, medicaments and biological substances; Z87.891 Personal history of nicotine dependence; Z79.52 Long term (current) use of systemic steroids; Z99.81 Dependence on supplemental oxygen; Z80.9 Family history of malignant neoplasm, unspecified; Z23 Encounter for immunization
CPT/HCPCS: 10879

== ENCOUNTER 2018-04-19 19:44 | Emergency (ER) | payer OTHER ==
[~2018-04-19] VITALS: Ht 195.6 cm; Wt 74.8 kg
[~2018-04-19 19:44] MED LIST changes: +ACETAMINOPHEN325 M1 PO; +AUGMENTIN 875-1 EACH PO; +MUCINEX600 MG PO; +PANTOPRAZOLE SO40 M1 PO; +PREDNISONE 10 M10 MG PO
[2018-04-19 20:03] LABS: ABSOLUTE NEUTROPHILS 13.4 thou/uL (1.4-8.2); BASOPHILS 0.1 % (0.0-2.0); HEMATOCRIT 33.7 % (42.0-52.0); HEMOGLOBIN 11.1 gm/dL (14.0-18.0); LYMPHOCYTES 2.1 % (24.0-44.0); MCH 29.7 pg (26.0-34.0); MCHC 32.8 g/dL (28.0-37.0); MCV 90.3 fL (80.0-100.0); MONOCYTES 4.6 % (1.0-8.0); PLATELET COUNT 132 thou/uL (150-400); POLYS 93.2 % (36.0-66.0); RBC 3.73 mil/uL (4.50-6.00); WBC 14.4 thou/uL (4.0-11.0)
[2018-04-19 20:18] LABS: ANION GAP 2 mmol/L (7-16); BUN 32 mg/dL (7-18); CALCIUM 9.1 mg/dL (8.5-10.1); CHLORIDE 105 mmol/L (98-107); CO2 39 mmol/L (21-32); CREATININE 1.4 mg/dL (0.7-1.3); GLUCOSE 170 mg/dL (74-106); POTASSIUM 4.4 mmol/L (3.5-5.1); SODIUM 146 mmol/L (136-145)
[2018-04-19 20:19] LABS: BE(vivo) 11.6 mmol/L (-2 to +3); HCO3 40.9 mmol/L (22.0-26.0); PCO2 VENOUS 82.9 mmHg (41.0-51.0); PO2 VENOUS 34.8 mmHg (35.0-45.0)
[2018-04-19 20:24] LABS: ALBUMIN 2.8 g/dL (3.4-5.0); SGOT 13 U/L (15-37); SGPT 22 U/L (30-65); TOTAL BILIRUBIN 0.6 mg/dL (<0.1-1.0); TROPONIN-I <0.06 ng/mL (<0.06)
[2018-04-19 21:22] LABS: BE(vivo) 12.2 mmol/L (-2 to +3); HCO3 40.8 mmol/L (22.0-26.0); PCO2 78.3 mmHg (35.0-45.0); pH 7.335 (7.360-7.450); sO2 97.4 % (92.0-98.0)
[2018-04-19 22:50] VITALS: BP 174/81
--- NOTE | 2018-04-20 08:41 | EKG ---
[place] [address] [facility] [place] [address] ELECTROCARDIOGRAM REPORT Name: BENJAMINJESSY R Room #: [facility]#: [id number] ������������������ Admission: 04/19/18 ������������������ Attend Phys: Discharge: 04/19/18 ������������������ Date of : 36 Report #: [id number] ����������������������������������������������������������������� [id number] THIS REPORT FOR: //name// [facility] ED Test Date: 2018-04-19 Test Time: 20:01:55 Pat Name: JESSY ALEXANDER Department: Room: Gender: Slide Maker: : 1940 Requested By: Arden Dorado Order Number: [id number] MD: Brock Renee Measurements Intervals [place] Rate: 91 P: 81 MA: 121 QRS: 4 QRSD: 131 T: 75 QT: 383 QTc: 472 Interpretive Statements Sinus rhythm Atrial premature complexes Right atrial enlargement Right bundle branch block Compared to ECG 04/14/2018 18:55:17 Sinus tachycardia no longer present Electronically Signed On 04-20-2018 8:41:18 CONSTRUCTION EQUIPMENT MECHANIC by Brock Renee [email or web address] ��������������������������������������������� <ELECTRONICALLY SIGNED> ���������������������������������������� By: Brock Renee MD, [facility] ��������������������������������������������� 04/20/18 0841 2001 00 Brock Renee MD, FAC /EPI
== END 2018-04-19 22:52 | disposition home or self-care (01) ==
LOC: ER 19:44
PROVIDERS: Emergency Medicine
DX: J96.10 Chronic respiratory failure, unspecified whether with hypoxia or hypercapnia (principal); I12.9 Hypertensive chronic kidney disease with stage 1 through stage 4 chronic kidney disease, or unspecified chronic kidney disease; N18.9 Chronic kidney disease, unspecified; J44.9 Chronic obstructive pulmonary disease, unspecified; J18.9 Pneumonia, unspecified organism; Z87.891 Personal history of nicotine dependence; Z88.8 Allergy status to other drugs, medicaments and biological substances; Z86.2 Personal history of diseases of the blood and blood-forming organs and certain disorders involving the immune mechanism; Z86.718 Personal history of other venous thrombosis and embolism